=== PATIENT | female | born 1955 | race Caucasian/White ===

== ENCOUNTER 2023-08-10 09:41 | Emergency (ER) | payer OTHER, BC ==
[2023-08-10 10:11] VITALS: BP 131/75; PULSE 58; RESP 18; TEMP 98.3; BMI 33.8
== END 2023-08-10 11:41 | disposition home or self-care (01) ==
LOC: JER 09:41
DX: M25.571 Pain in right ankle and joints of right foot (principal); R22.41 Localized swelling, mass and lump, right lower limb
CPT/HCPCS: 73610-TC-RT-FY; 73630-TC-RT-FY; 99283-25